=== PATIENT | female | born 1990 | race Caucasian/White ===

== ENCOUNTER → 2024-10-31 | Outpatient (CLI) | payer SELFPAY ==
--- NOTE | 2024-10-31 08:15 | FLU_PTH ---
PATIENT: DELMI OMER LOC: [facility] U#:[id number] AGE/SX: 34/F ROOM: RE10/31/[address]: Dr. Florian Barillas MD : 1990 BED: DIS: 10/31/2024 SPEC #: [id number] RECD: 10/31/24 10:36 STATUS: SYED CLAUDIA #: [id number] NOVA: 10/31/24 08:[address]: Florian Barillas DEPT: CYTOLOGY RECD BY: [place] ENTERED: 10/31/24 11:24 SP TYPE: Fluid OTHR DR: SASHA Posadas Tissues: A - Thyroid gland, NOS B - Thyroid gland, NOS Procedures: Special Stain Group II Surgery Specimen Level IV Cytospin Fluid HEADER OPERATION: Fine needle aspiration of thyroid nodule PRE-OP DIAGNOSIS: Thyroid nodule TISSUE SUBMITTED: A- Left thyroid nodule fluid, B- Left thyroid nodule slides DIAGNOSIS CYTOLOGY A. Fine needle aspiration, left thyroid nodule fluid (cytospins and cellblock): Adequate for evaluation. 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 See comment. B. 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 See comment. AM.mr 11/01/2024 COMMENT A, B. The [place] System for thyroid diagnostic categorization was used in the evaluation of this case. Per recommendations and a clinician-approved plan (a call was made to the referring doctor about the recommendation), genomic testing (Afirma) has been submitted. Results will be reported as an addendum and faxed to clinician. CYTOLOGY STUDY Slides are reviewed. CYTOLOGY GROSS A. Received is 30 ml of red fluid labeled with the patient's name and and designated per the requisition as Left thyroid nodule. Submitted for cytology preparation including cell block. B. Received are 4 smears labeled with the patient's name and designated per the requisition as Left thyroid nodule. Submitted for staining. Mr 10/31/2024 TC:? CPT: 49319 x2,[id number] ADDENDUM ADDENDUM ADDENDUM ADDENDUM ADDENDUM ADDENDUM ADDENDUM ADDENDUM ADDENDUM ADDENDUM ADDENDUM 11/27/2024 13:17 ADDENDUM 11/27/2024 13:17 ADDENDUM 11/27/2024 13:17 ADDENDUM 11/27/2024 13:17 ADDENDUM 11/27/2024 13:17 AFIRMA RESULTS REPORT RESULTS INTERPRETATION: The result of this 4.0 cm [place] III nodule A is Afirma GSC suspicious and PAX8/PPARG positive which suggests a risk of cancer of ~75%. This genomic alteration is associated with follicular neoplasms (FA, NIFTP, FVPTC, FTC) and a MAGED-like or Non- BRAF-non MAGED- like profile, which includes rates of lymph node metastases and extrathyroidal extension that are lower than BRAF [id number] neoplasms. Clinical correlation and surgical resection should be considered. Please see complete report in e-chart or EMR
== END | disposition home or self-care (01) ==
LOC: LABSPEC 10:46
PROVIDERS: PCP Physician Assistant; Referring Provider Surgery; Visit Provider Surgery
DX: E04.1 Nontoxic single thyroid nodule (principal)
CPT/HCPCS: 88108; 88305; 88313